=== PATIENT | female | born 1970 ===

== ENCOUNTER 2018-02-28 16:31 | Emergency (ER) | payer OTHER ==
[~2018-02-28] VITALS: Ht 162.6 cm; Wt 64.4 kg
[2018-02-28 16:59] VITALS: BP 155/98
== END 2018-02-28 18:01 | disposition home or self-care (01) ==
LOC: ER 16:33
DX: M25.561 Pain in right knee (principal); F17.200 Nicotine dependence, unspecified, uncomplicated
CPT/HCPCS: 29125; 73110; 99284; A4565; A6449